=== PATIENT | male | born 1955 | race Caucasian/White ===

== ENCOUNTER 2018-12-25 13:57 | Inpatient (IN) | payer BC ==
[2018-12-25] MEDS ORDERED: NS 0.9% 1000 ML** 1,000 ML IV ONE (14:13)
--- NOTE | 2018-12-25 14:17 | ED ---
HPI Chest Pain - HPI Summary HPI Summary: Pt is a 63 y/o male brought in by EMS who presents to the ED c/o chest discomfort. He woke up at 2:00 this morning with some left anterior chest discomfort that radiated into his left shoulder. Pt has a left shoulder injury that is intermittently painful, so he initially thought it was because of this. The discomfort resolved, so the pt went to work. Today at work the discomfort returned, this time accompanied by fatigue, weakness, diaphoresis, and pallor. The discomfort is rated a 5/10 in severity. Upon EMS arrival pt was on the floor and extremely diaphoretic. Pt denies any sharp CP, abdominal pain, back pain, cough, congestion, SOB, N/V/D, numbness, or difficulty moving extremities. He was given 324 mg of ASA and 3 NTGs. His BP was initially about 180/100, and each NTG subsequently brought his BP down. Pt denies any HTN, DM, or cardiac disease. FHx cardiac disease. Pt is a smoker. STEMI called at 13:53, 3 minutes ETA. - History of Current Complaint Hx Obtained From: Patient, EMS Onset/Duration: Started Hours Ago - 2:00 this morning, Still Present Timing: Constant Current Severity: Moderate Pain Intensity: 5 Pain Scale Used: 0-10 Numeric Chest Pain Location: Left Anterior Chest Pain Radiates: Yes Chest Pain Radiates To:: Shoulder - left Character: Other: - Discomfort Aggravating Factor(s): Nothing Alleviating Factor(s): NTG 123, EMS Tx - ASA Associated Signs and Symptoms: Positive: Chest Pain - discomfort, Diaphoresis. Negative: Numbness, Shortness of Breath, Nausea, Cough, Back Pain, Abdominal Pain, Vomiting, Nasal Congestion - Allergy/Home Medications Allergies/Adverse Reactions: Allergies Allergy/AdvReac Type Severity Reaction Status Date / Time No Known Allergies Allergy Verified 12/25/18 14:12 PMH/Surg Hx/FS Hx/Imm Hx Endocrine/Hematology History: Denies: Hx Diabetes Cardiovascular History: Denies: Hx Coronary Artery Disease, Hx Hypertension Infectious Disease History: Unable to Obtain/Confirm Infectious Disease History: Denies: Traveled Outside the [place] in Last 30 Days - Family History Known Family History: Positive: Cardiac Disease - Social History Alcohol Use: Rare Hx Substance Use: No Substance Use Type: Reports: None Hx Tobacco Use: Yes Smoking Status (MU): Current Every Day Smoker Review of Systems Positive: Fatigue, Skin Diaphoresis, Other - generalized weakness Negative: Other - congestion Positive: Chest Pain - discomfort Negative: Shortness Of Breath, Cough Negative: Abdominal Pain, Vomiting, Diarrhea, Nausea Positive: Arthralgia - radiating to left shoulder. Negative: Myalgia - back Positive: Other - Pallor Negative: Weakness - of extremities, Numbness All Other Systems Reviewed And Are Negative: Yes Physical Exam - Summary Physical Exam Summary: Appearance: ill appearing, moderate-severe pain distress Skin: warm, reflects adequate perfusion, diaphoretic Head/face: normal Eyes: EOMI, ENEDELIA ENT: mucous membranes moist Neck: supple, non-tender Respiratory: crackles in right lung base, breath sounds present Cardiovascular: RRR, pulses weak but present everywhere, no LE edema Abdomen: non-tender, soft but gassy Bowel Sounds: present Musculoskeletal: normal, strength/ROM intact, complains of left shoulder pain Neuro: normal, sensory motor intact, A&Ox3 Triage Information Reviewed: Yes Vital Signs On Initial Exam: Initial Vitals Temp Pulse Resp BP Pulse Ox 97.2 F 66 18 132/88 98 12/25/18 14:08 12/25/18 14:08 12/25/18 14:08 12/25/18 14:08 12/25/18 14:08 Vital Signs Reviewed: Yes Diagnostics - Vital Signs Vital Signs Temp Pulse Resp BP Pulse Ox 12/25/18 14:08 97.2 F 66 18 132/88 98 - Laboratory Result Diagrams: 12/25/18 14:05 12/25/18 14:05 Lab Statement: Any lab studies that have been ordered have been reviewed, and results considered in the medical decision making process. - EKG 13:58 Cardiac Rate: NL - 68 bpm EKG Rhythm: Sinus Rhythm Summary of EKG Findings: Minimal ST elevation with J point elevation in leads V2 and V3 with ST depression leads III and AVF 14:03 Cardiac Rate: NL - 62 bpm EKG Rhythm: Sinus Rhythm Summary of EKG Findings: Slightly increased ST elevation with J point elevation in leads V2 and V3 with ST depression leads III and AVF 14:11 Cardiac Rate: NL - 62 bpm EKG Rhythm: Sinus Rhythm Summary of EKG Findings: ST elevation in leads V2-V3 with reciprocal ST depression Chest Pain Course/Dx - Course Course Of Treatment: Nurse's notes reviewed. Patient presents in extremis with concern for possible ST elevation TX. labor mediator team was activated despite not meeting criteria. Patient dropped his blood pressure and his ST elevations continued to evolve over 2 more EKGs, meeting criteria. Neck oh confirmed anterior wall movement abnormality. He was taken to the Motion Picture Director emergently for stenting. - Chest Pain Differential Diagnosis/HQI/PQRI: Acute TX, ACS, Angina, Aortic Aneurysm, CHF, Chest Wall, GI Disease, Lower Respiratory Infection - Diagnoses Provider Diagnoses: Acute ST elevation myocardial infarction (STEMI) During the Visit The Following Alert/Code Occurred: STEMI - Called at 13:53, ETA 3 minutes - Provider Notifications Discussed Care Of Patient With: Rich Nicholson Time Discussed With Above Provider: 13:56 Instructed by Provider To: Other - Dr. Nicholson arrived to the ED. At 14:16 Dr. Nicholson is admitting the pt and taking him to the label sewer. - Critical Care Time Critical Care Time: 30-74 min - Critical care time is exclusive of separately billable procedures Discharge - Sign-Out/Discharge Documenting (check all that apply): Patient Departure - Admit Patient Received Moderate/Deep Sedation with Procedure: No - Discharge Plan Condition: Stable Disposition: ADMITTED TO [facility] - Billing Disposition and Condition Condition: STABLE Disposition: Admitted to [facility] - Attestation Statements Document Initiated by Aziza: Yes Documenting Scribe: Lia Ornelas Provider For Whom Scribe is Documenting (Include Credential): Gabe Chatman MD Scribe Attestation: Lia Johnson, scribed for Gabe Chatman MD on 12/25/18 at 1814. Scribe Documentation Reviewed: Yes Provider Attestation: The documentation as recorded by the Lia bunn accurately reflects the service I personally performed and the decisions made by me, Gabe Chatman MD Status of Scribe Document: Viewed
[2018-12-25 14:19] LABS: Hematocrit 46 % (42-52); Hemoglobin 15.6 g/dl (14.0-18.0); Mean Corpuscular HGB Conc 34 g/dl (31-36); Mean Corpuscular Hemoglobin 28 pg (27-31); Mean Corpuscular Volume 83 fL (80-94); Mean Platelet Volume 7.5 fL (7.4-10.4); Platelet Count 332 10^3/ul (150-450); Red Blood Count 5.56 10^6/ul (4.00-5.40); Red Cell Distribution Width 14 % (10.5-15); White Blood Count 7.2 10^3/ul (3.5-10.8)
[2018-12-25] MEDS ORDERED: Heparin for STEMI(*) 5,000 UNITS/ML 1 ML VIAL IV ONE ×2 (14:19→14:20)
[2018-12-25] MEDS ORDERED: Lidocaine 1% INJ* 10 MG/ML 30 ML SDV ONE (14:22)
[2018-12-25] MEDS ORDERED: Heparin(*) 1000 UNIT/ML 10 ML VIAL CATH LAB IV ONE (14:22)
[2018-12-25] MEDS ORDERED: Heparin 2 UNITS/ML IVPREMIX* 2,000 ML IV ONE (14:22)
[2018-12-25] MEDS ORDERED: VERAPAMIL 2.5 MG/ML 2 ML VIAL ** 5 mg/2 ml ONE ×2 (14:22→14:30)
[2018-12-25] MEDS ORDERED: nitroGLYCERIN DRIP* 25,000 MCG/250 ML BTL ONE ×2 (14:22→14:35)
[2018-12-25] MEDS ORDERED: fentaNYL* 50 MCG/ML 2 ML VIAL (100 MCG VIAL) ONE ×2 (14:23→14:50)
[2018-12-25] MEDS ORDERED: Midazolam* 1 MG/ML 10 ML VIAL (10 MG) ONE (14:23)
[2018-12-25] MEDS ORDERED: Iohexol 350 (CONTRAST) 200 ML MDV IV ONE ×2 (14:24→15:18)
[2018-12-25 14:36] LABS: Albumin 4.3 g/dL (3.2-5.2); Albumin/Globulin Ratio 1.5 (1-3); BUN/Creatinine Ratio 10.2 (8-20); Calcium 9.2 mg/dL (8.6-10.3); EGFR African American 105.2 (>60); EGFR Non-African American 86.9 (>60); Globulin 2.9 g/dL (2-4); Potassium 3.5 mmol/L (3.5-5.0); Total Bilirubin 0.5 mg/dL (0.2-1.0); Total Protein 7.2 g/dL (6.4-8.9)
[2018-12-25 14:40] LABS: Myoglobin 49.3 ng/mL (17.4-105.7)
[2018-12-25 14:41] LABS: CKMB ng/mL 2.2 ng/mL (0.6-6.3)
[2018-12-25] MEDS ORDERED: KCL 10 MEQ/50 ML IVPREMIX* 10 MEQ/50 ML BAG ONE (14:43)
[2018-12-25 14:44] LABS: Troponin I 0.05 ng/mL (<0.04)
[2018-12-25] MEDS ORDERED: Ticagrelor* 90 MG TAB PO ONE (14:46)
[2018-12-25 14:58] LABS: Influenza A Molecular NEGATIVE (Negative); Influenza B Molecular NEGATIVE (Negative)
[2018-12-25] MEDS ORDERED: Eptifibatide (*) 0 ML ONE (15:02)
[2018-12-25] MEDS ORDERED: Eptifibatide IV (Load dose)(*) 2 MG/ML 10 ml VIAL ONE (15:02)
[2018-12-25 15:09] LABS: Activated Partial Thrombo Time 34.7 seconds (26.0-36.3); INR 0.98 (0.77-1.02)
[2018-12-25] MEDS ORDERED: Ondansetron INJ* 2 MG/ML VIAL ONE (15:10)
[2018-12-25 15:14] LABS: TSH (Thyroid Stimulating Horm) 0.74 mcIU/mL (0.34-5.60)
[2018-12-25] MEDS ORDERED: Ondansetron INJ* 2 MG/ML VIAL IV PRN (16:03)
[2018-12-25] MEDS ORDERED: Zolpidem TAB* 5 MG PO PRN (16:03)
[2018-12-25] MEDS ORDERED: Nitroglycerin TAB 0.4 MG* 0.4 MG TAB SL PRN (16:03)
[2018-12-25] MEDS ORDERED: NS 0.9% 1000 ML** 400 ML IV SCH (16:15)
[2018-12-25 16:23] LABS: HDL Cholesterol 24.8 mg/dL
--- NOTE | 2018-12-25 16:32 | ECHO ---
Patient: RAFAELA REDDY [facility] Rec#: [id number] : 1955 Date: 12/25/2018 Age: 63y Height: 173 cm / 68.1 in Weight: 66 kg / 145.5 lbs Sex: M BSA: 1.79 Room#: [id number] Admit Date#: 12/25/2018 Type: Inpatient Referring: Rich Nicholson MD Reading: Radha Manjarrez MD Assistant Portfolio Manager: Wendy Smith RDCS CC: Emiliano Azar MD Transthoracic Echocardiogram Indication: Myocardial Infarction BP: 1.38/94 HR: 62 Rhythm: NSR Findings History: Smoker. This is a LIMITED study to evaluate left ventricular function. Technical Comments: The study quality is good. Completed at 1530. Left Ventricle: The left ventricular chamber size is normal. There is a focal wall motion abnormality present.Large anterior wall motion abnormality. There is moderate to severely decreased left ventricular systolic function. The estimated ejection fraction is 35-40%. Right Ventricle: The right ventricular global systolic function is mildly reduced. Pericardium: There is no significant pericardial effusion. A pericardial fat pad is visualized. Conclusions Limited echo to evaluate wall motion. Large apical anterior area of severe hypokinesis extending to the septum and anterior wall. The estimated ejection fraction is 35-40%. No prior echo to compare.
[2018-12-25] MEDS: Atorvastatin* 80 MG TAB PO SCH (16:43)
[2018-12-25] MEDS: Metoprolol Tartrate TAB* 25 MG PO SCH ×2 (16:43→23:18)
[2018-12-25] MEDS ORDERED: nitroGLYCERIN DRIP* 25,000 MCG/250 ML BTL IV SCH (17:00)
[2018-12-25 17:06] LABS: CKMB ng/mL 55.3 ng/mL (0.6-6.3)
[2018-12-25 17:09] LABS: Troponin I 3.6 ng/mL (<0.04)
--- NOTE | 2018-12-25 18:12 | HP ---
HISTORY AND PHYSICAL: DATE OF ADMISSION: 12/25/18 PRIMARY CARE PHYSICIAN: None. HISTORY OF PRESENT ILLNESS: A 63-year-old male presenting to the ER with somewhat atypical left shoulder pain and weakness, subsequently diagnosed with anterior ST- elevation infract. He has no previous cardiac history. Last night, he had about a 15-minute episode of aching in his left shoulder, which he attributed to having laid a floor the day before. He went back to sleep after taking some ibuprofen. This morning, he had recurrence of the same left shoulder pain that waxed and waned, accompanied by weakness and no shortness of breath, palpitations, or syncope. He presented in the ER, where EKG initially showed minimal precordial J-point elevation with an early repolarization pattern; because of the somewhat vague symptom complex, an echo was obtained stat which revealed an anteroapical wall motion abnormality consistent with an infarct; serial EKGs did then document ST- elevation anterior infarct; and he was brought to the labor delivery specialist emergently. PAST MEDICAL HISTORY: Noncontributory. PRE-HOSPITAL MEDICATIONS: None. ALLERGIES: None to medications. SOCIAL HISTORY: He is a smoker. He is . REVIEW OF SYSTEMS: General: No weight loss. No fevers. 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 GI: No history of peptic ulcer disease or bleeding. Heme: No history of malignancy or anemia. Circulatory: Negative. Endocrine: No history of diabetes. Remainder all negative. PHYSICAL EXAMINATION VITAL SIGNS: First ER BP 93/73, dropping to 80/58, he did receive 3 nitroglycerin in the ambulance. Subsequent BP normalized at 111/83 with volume. Heart rate in the 60 to 70s with occasional PVCs. HEENT: Unremarkable without xanthelasma, scleral injection, or jaundice. EOMs normal. NECK: JVP was normal. Carotids were normal without bruits. No thyromegaly. LUNGS: Clear to percussion and auscultation. CARDIAC: [place] not palpable, normal S1, S2. No gallop, murmur, or rub. ABDOMEN: Soft, nontender. No bruit. Liver edge not palpable. EXTREMITIES: Radial pulses 2+. Femoral pulses 2+. Pedals 2+. He has no cyanosis, clubbing, or edema. NEUROLOGIC: Cranial nerves grossly intact. PSYCH: Appropriately uncomfortable and anxious. SKIN: Warm and perfused. DIAGNOSTIC STUDIES/LAB DATA: EKG as above. CBC unremarkable. BMP with low potassium of 3.5, random blood sugar elevated at 143, alkaline phosphatase increased at 136. First CPK is normal at 117 with MB of 2.2, first troponin 0.05. BNP normal at 16. Total cholesterol 182; triglycerides high at 233; LDL 111, direct measured 120; HDL low at 24.8. TSH normal. IMPRESSION: 1. Anterior wall ST-elevation infarct. He underwent emergent catheterization and revascularization. 2. Tobacco use. We will encourage him not to resume smoking. 3. Hyperglycemia, I will check a hemoglobin A1c. 4. Abnormal alkaline phosphatase, presently unknown etiology. [id number]/[facility] #: [id number] JAMES
[2018-12-25] MEDS ORDERED: Captopril TAB* 12.5 MG PO SCH (21:00)
[2018-12-25] MEDS: Acetaminophen TAB* 325 MG PO PRN (21:00)
[2018-12-25] MEDS: Ticagrelor* 90 MG TAB PO SCH (21:01)
[2018-12-25] MEDS: Nicotine PATCH 7 MG/24 HR* PATCH TRANSDERM SCH (21:02)
[2018-12-25] MEDS: Nicotine Patch Removal NOTE PATCH OFF SCH (21:02)
[2018-12-25 22:05] LABS: CKMB ng/mL 168.5 ng/mL (0.6-6.3)
[2018-12-25 22:11] LABS: Troponin I 34.12 ng/mL (<0.04)
[2018-12-26] MEDS: Metoprolol Tartrate TAB* 25 MG PO SCH ×5 (05:54→23:38)
[2018-12-26 06:37] LABS: BUN/Creatinine Ratio 10.3 (8-20); Calcium 8.9 mg/dL (8.6-10.3); EGFR African American 106.6 (>60); EGFR Non-African American 88.1 (>60); Potassium 4.3 mmol/L (3.5-5.0)
[2018-12-26 06:40] LABS: CKMB ng/mL 110.7 ng/mL (0.6-6.3); Troponin I 25.91 ng/mL (<0.04)
--- NOTE | 2018-12-26 08:44 | PN ---
Subjective Date of Service: 12/26/18 - anterior stemi s/p SYLVIA 12/25/2018 Interval History: No events last night, patient states he did not sleep well due to generalized aches and pains. No recurrent left shoulder pain radiating into upper back or dizziness since yesterday afternoon. No c/o chest pain, dizziness, palpitations. No events on telemetry. Reports ambulating to chair and using bathroom in room. Medications Active Medications: Acetaminophen (Tylenol Tab*) 650 mg PO Q4H PRN PRN Reason: HEADACHE/PAIN Last Admin: 12/25/18 21:00 Dose: 650 mg Aspirin (Aspirin 81 Mg Chew Tab*) 81 mg PO DAILY [facility] Atorvastatin Calcium (Lipitor*) 80 mg PO 1700 [facility] Last Admin: 12/25/18 16:43 Dose: 80 mg Nitroglycerin/Dextrose (Nitroglycerin Drip*) 25,000 mcg in 250 mls @ 7.2 mls/ hr IV .(Initial Rate) [facility]; Protocol Influenza Virus Vaccine (Fluarix *Quad* *) 0.5 ml IM .ONCE ONE Stop: 12/26/18 09:01 Metoprolol Tartrate (Lopressor Tab*) 25 mg PO Q6H [facility] Last Admin: 12/26/18 05:54 Dose: 25 mg Nicotine (Nicotine Patch 7 Mg/24 Hr*) 1 patch TRANSDERM DAILY [facility] Last Admin: 12/25/18 21:02 Dose: Not Given Nitroglycerin (Nitroglycerin Tab 0.4 Mg*) 0.4 mg SL Q5M PRN PRN Reason: ANGINA Ondansetron HCl (Zofran Inj*) 4 mg IV Q4H PRN PRN Reason: NAUSEA Pharmacy Profile Note (Nicotine Patch Removal Note*) 1 note PATCH OFF 2100 [facility] Last Admin: 12/25/18 21:02 Dose: 1 note Pneumococcal Polyvalent Vaccine (Pneumococcal Vac 23-Polyvalent*) 0.5 ml IM .ONCE ONE Stop: 12/26/18 09:01 Ticagrelor (Brilinta*) 90 mg PO BID [facility] Last Admin: 12/25/18 21:01 Dose: 90 mg Zolpidem Tartrate (Ambien Tab*) 5 mg PO BEDTIME PRN PRN Reason: INSOMNIA Last Admin: 12/25/18 21:00 Dose: 5 mg Objective Vital Signs: Temp Pulse Resp BP Pulse Ox 97.8 F 53 20 139/91 93 12/26/18 03:24 12/26/18 07:00 12/26/18 07:00 12/26/18 07:00 12/26/18 07:00 Oxygen Devices in Use Now: None Appearance: A+O X3 NAD, cooperative with exam. Ears/Nose/Mouth/Throat: NL Teeth, Lips, Gums, Clear Oropharnyx, Mucous Membranes Moist Neck: NL Appearance and Movements; NL JVP, Trachea Midline, No Thyroid Enlargement, Masses Respiratory: Symmetrical Chest Expansion and Respiratory Effort, Clear to Auscultation Cardiovascular: NL Sounds; No Murmurs; No JVD, No Edema Abdominal: NL Sounds; No Tenderness; No Distention Extremities: No Edema Skin: No Rash or Ulcers Neurological: Alert and Oriented x 3 Lines/Tubes/Other Access: Clean, Dry and Intact Peripheral IV Laboratory Results: 12/25/18 14:05 12/26/18 06:00 INR (Anticoag Therapy) 0.98 (0.77-1.02) 12/25/18 14:05 APTT 34.7 seconds (26.0-36.3) 12/25/18 14:05 Total Bilirubin 0.50 mg/dL (0.2-1.0) 12/25/18 14:05 AST 20 U/L (13-39) 12/25/18 14:05 ALT 14 U/L (7-52) 12/25/18 14:05 Alkaline Phosphatase 136 U/L (34-104) H 12/25/18 14:05 CK-MB (CK-2) 110.7 ng/mL (0.6-6.3) H 12/26/18 06:00 B-Natriuretic Peptide 16 pg/mL (<=100) 12/25/18 14:05 Total Protein 7.2 g/dL (6.4-8.9) 12/25/18 14:05 Albumin 4.3 g/dL (3.2-5.2) 12/25/18 14:05 Globulin 2.9 g/dL (2-4) 12/25/18 14:05 Albumin/Globulin Ratio 1.5 (1-3) 12/25/18 14:05 Triglycerides 233 mg/dL 12/25/18 14:05 Cholesterol 182 mg/dL 12/25/18 14:05 LDL Cholesterol 111 mg/dL 12/25/18 14:05 HDL Cholesterol 24.8 mg/dL 12/25/18 14:05 TSH 0.74 mcIU/mL (0.34-5.60) 12/25/18 14:05 12/25/18 12/25/18 12/25/18 14:05 16:30 21:24 Troponin I 0.05 H* 3.60 H* 34.12 H* 12/26/18 06:00 Troponin I 25.91 H* Laboratory Results - last 24 hr 12/25/18 12/25/18 12/25/18 14:05 14:05 14:05 WBC 7.2 RBC 5.56 H Hgb 15.6 Hct 46 MCV 83 MCH 28 MCHC 34 RDW 14 Plt Count 332 MPV 7.5 INR (Anticoag Therapy) 0.98 APTT 34.7 POC Activ Clotting Time D-Dimer, Quantitative < 200 Sodium 136 Potassium 3.5 Chloride 104 Carbon Dioxide 22 Anion Gap 10 BUN 9 Creatinine 0.88 Est GFR ( Amer) 105.2 Est GFR (Non-Af Amer) 86.9 BUN/Creatinine Ratio 10.2 Glucose 143 H Calcium 9.2 Total Bilirubin 0.50 AST 20 ALT 14 Alkaline Phosphatase 136 H Total Creatine Kinase 117 CK-MB (CK-2) 2.2 Myoglobin 49.3 Troponin I 0.05 H* B-Natriuretic Peptide Total Protein 7.2 Albumin 4.3 Globulin 2.9 Albumin/Globulin Ratio 1.5 Triglycerides 233 Cholesterol 182 LDL Cholesterol 111 LDL Cholesterol Direct 120 HDL Cholesterol 24.8 TSH 0.74 Influenza A (Rapid) Influenza B (Rapid) Blood Type Antibody Screen 12/25/18 12/25/18 12/25/18 14:05 14:05 14:46 WBC RBC Hgb Hct MCV MCH MCHC RDW Plt Count MPV INR (Anticoag Therapy) APTT POC Activ Clotting Time D-Dimer, Quantitative Sodium Potassium Chloride Carbon Dioxide Anion Gap BUN Creatinine Est GFR ( Amer) Est GFR (Non-Af Amer) BUN/Creatinine Ratio Glucose Calcium Total Bilirubin AST ALT Alkaline Phosphatase Total Creatine Kinase CK-MB (CK-2) Myoglobin Troponin I B-Natriuretic Peptide 16 Total Protein Albumin Globulin Albumin/Globulin Ratio Triglycerides Cholesterol LDL Cholesterol LDL Cholesterol Direct HDL Cholesterol TSH Influenza A (Rapid) Negative Influenza B (Rapid) Negative Blood Type O Positive Antibody Screen Negative 12/25/18 12/25/18 12/25/18 14:46 15:05 16:30 WBC RBC Hgb Hct MCV MCH MCHC RDW Plt Count MPV INR (Anticoag Therapy) APTT POC Activ Clotting Time 225 351 D-Dimer, Quantitative Sodium Potassium Chloride Carbon Dioxide Anion Gap BUN Creatinine Est GFR ( Amer) Est GFR (Non-Af Amer) BUN/Creatinine Ratio Glucose Calcium Total Bilirubin AST ALT Alkaline Phosphatase Total Creatine Kinase 609 H CK-MB (CK-2) 55.3 H Myoglobin Troponin I 3.60 H* B-Natriuretic Peptide Total Protein Albumin Globulin Albumin/Globulin Ratio Triglycerides Cholesterol LDL Cholesterol LDL Cholesterol Direct HDL Cholesterol TSH Influenza A (Rapid) Influenza B (Rapid) Blood Type Antibody Screen 12/25/18 12/25/18 12/26/18 21:24 23:37 06:00 WBC RBC Hgb Hct MCV MCH MCHC RDW Plt Count MPV INR (Anticoag Therapy) APTT POC Activ Clotting Time D-Dimer, Quantitative Sodium 134 L Potassium 4.2 4.3 Chloride 106 Carbon Dioxide 22 Anion Gap 6 BUN 9 Creatinine 0.87 Est GFR ( Amer) 106.6 Est GFR (Non-Af Amer) 88.1 BUN/Creatinine Ratio 10.3 Glucose 120 H Calcium 8.9 Total Bilirubin AST ALT Alkaline Phosphatase Total Creatine Kinase 1407 H 1056 H CK-MB (CK-2) 168.5 H 110.7 H Myoglobin Troponin I 34.12 H* 25.91 H* B-Natriuretic Peptide Total Protein Albumin Globulin Albumin/Globulin Ratio Triglycerides Cholesterol LDL Cholesterol LDL Cholesterol Direct HDL Cholesterol TSH Influenza A (Rapid) Influenza B (Rapid) Blood Type Antibody Screen Diagnostic Imaging: Echo 12/25/2018; LVEF 35-40% + anterior focal WMA EKG Data: 12/26/2018 NSR rate 59 new anterior TW depression consistent with recent infarct. Telemetry NSR rate 50-60's. no VPC or VT Assessment/Plan #1 Anterior STEMI 12/25/2018; s/p SYLVIA to LAD. No recurrent c/o dizziness, left shoulder pain radiating into upper back or fatigue since intervention. He is on ASA 81/day, Brilinta 90mg PO BID, Lopressor 25mg PO Q6H and Lipitor 80QHS. Troponin peaked 12/25/2018 at 34. LVEF 35-40%. #2 ICM; LVEF 35-40% on 12/25/2018 echo. Appears compensated on exam. Will increase Captopril to 12.5mg PO TID, continue Lopressor 25mg PO Q6H. Will convert Lopressor to Toprol 50/day starting 12/27/2018. Will consider aldactone in the future. #3 H/o Tobacco Abuse; Continue Nicotine patch. I reviewed the importance of smoking cessation for overall cardiovascular benefits. He is interested in quitting. Will need Nicotine patch prescribed prior to discharge. h/o smoking 1/ 2-3/4 PPD for 30+ years #4 HLD; LDL 120. Goal LDL given now new h/o CAD is <70. Continue Lipitor 80mg PO QHS. will need repeat FLP and LFTs in 6-8 weeks given statin initiation. #5 Elevated blood glucose on chemistry. Await HgbA1C. #6 Disposition pending course, patient is a full code. If he does well with ambulating halls today will likely transfer to telemetry. Will not RX heparin for DVT prophylaxis due to early and frequent ambulation. Attending: Rich Nicholson
[2018-12-26] MEDS: Nicotine PATCH 7 MG/24 HR* PATCH TRANSDERM SCH (08:56)
[2018-12-26] MEDS: Aspirin 81 mg CHEW TAB* 81 MG TAB.CHEW PO SCH (08:56)
[2018-12-26] MEDS: Captopril TAB* 12.5 MG PO SCH ×3 (08:56→21:29)
[2018-12-26] MEDS: Ticagrelor* 90 MG TAB PO SCH ×2 (08:56→21:28)
[2018-12-26] MEDS ORDERED: Pneumococcal *Vac Polyvalent 0.5 ML VIAL IM ONE (09:00)
--- NOTE | 2018-12-26 14:19 | CATH ---
CC: Dr. Rich Nicholson STENT REPORT: DATE OF PROCEDURE: 12/25/18 PRIMARY CARE PHYSICIAN: None. PROCEDURES: Right radial artery access, bilateral selective coronary cineangiography, aspiration thr ombectomy LAD, Pronto. Stent placement LAD 2.75 x 24 Synergy drug-eluting stent, with proximal 3.0 x 15 Xience Leana drug-eluting stent. DIAGNOSTIC CATHETERS: 5F TIG4, 5F pigtail. GUIDING CATHETER: 6F VL 3.5. MEDICATIONS: 1. Subcu lidocaine. 2. IV Versed. 3. IV fentanyl. 4. Radial cocktail: 300 mcg nitroglycerin, verapamil 3 mg, heparin no units. He received 4000 unit s in the IV. An additional heparin 7000 units IV. 5. Zofran 4 mg for nausea. HEMODYNAMICS: Initial BP 145/101. Post revascularization, LV 124/16-21, no aortic valve gradients o n pullback. STENT DEPLOYMENT LAD: After Pronto aspiration thrombectomy established antegrade flow, 2.75 x 24 Syn ergy drug-eluting stent deployed 11 atmospheres 14 seconds, post dilated with overlapping 2.75 x 20 N C balloon dilatations to 16 atmospheres distally, and 18 atmospheres at the proximal end. The proxim al LAD stenosis was then deployed using a 3.0 x 15 Xience Leana stent deployed at 12 atmospheres 15 seconds, and post dilated with a 3 x 15 NC balloon to 20 atmospheres for 40 seconds. ANGIOGRAPHY: Left main. The left main is relatively short, has no stenosis. LAD. The LAD is moderate to large, is occluded a few millimeters from the origin, there is faint lef t-to-left collateral filling of a small diagonal branch. Circumflex. The circumflex is large, not dominant, supplies a very large first marginal, small-to-mo derate posterolateral and ends with a moderate posterolateral, the circumflex has no significant sten osis. RCA. The RCA is moderate, dominant, with scattered luminal irregularity proximally as well as within the PDA. The PDA is moderate, has a mid 30% to 40% stenosis. After anabaptism of antegrade flow, there is a moderate proximal stenosis followed by reconstitution followed by a tandem stenosis after the first septal. After stent deployment and high pressure post dilatation, flow is ARIANNA 3, there is no residual stenosis. There is a jailed small first diagonal, which has a tubular proximal 80% stenosis, has a reference diameter less than a millimeter. Myocardi al blush is present. Chest pain resolved. LV gram. There is preserved inferior and proximal anterolateral contractility, the mid to distal ant erolateral wall as well as apex are hypokinetic, visually estimated LVEF 40%. CONCLUSION: 1. Single-vessel disease LAD with acute anterior wall infarct presentation. Successful revasculariza tion with 2 drug-eluting stents. 2. Aspiration thrombectomy with removal of a small thrombus. 3. LV systolic dysfunction with moderately reduced LVEF. 4. Elevated LVEDP, otherwise normal left-sided hemodynamics. 5. Successful right radial artery access. [id number]/[facility] #: [id number]
[2018-12-26] MEDS: Atorvastatin* 80 MG TAB PO SCH (17:31)
[2018-12-26] MEDS: Nicotine Patch Removal NOTE PATCH OFF SCH (21:30)
[2018-12-27] MEDS: Metoprolol Tartrate TAB* 25 MG PO SCH (05:53)
[2018-12-27 07:22] LABS: BUN/Creatinine Ratio 10.6 (8-20); Calcium 9.1 mg/dL (8.6-10.3); EGFR African American 109.5 (>60); EGFR Non-African American 90.5 (>60); Potassium 4.2 mmol/L (3.5-5.0)
--- NOTE | 2018-12-27 08:27 | PN ---
<Elodia Irvin - Last Filed: 12/27/18 08:20> Subjective Date of Service: 12/27/18 - s/p anterior STEMI Interval History: No events last night, Patient was transferred to . he denies dizziness, chest pain, SOB, RIDLEY, palpitations. He adds he felt like he had heart burn but that seemed to improve. Per MELISSA Lopez last night while patient was asleep he was bradycardic rate 50. Medications Active Medications: Acetaminophen (Tylenol Tab*) 650 mg PO Q4H PRN PRN Reason: HEADACHE/PAIN Last Admin: 12/25/18 21:00 Dose: 650 mg Aspirin (Aspirin 81 Mg Chew Tab*) 81 mg PO DAILY [facility] Last Admin: 12/26/18 08:56 Dose: 81 mg Atorvastatin Calcium (Lipitor*) 80 mg PO 1700 [facility] Last Admin: 12/26/18 17:31 Dose: 80 mg Influenza Virus Vaccine (Fluarix *Quad* *) 0.5 ml IM .ONCE ONE Stop: 12/27/18 09:01 Lisinopril (Prinivil Tab*) 5 mg PO DAILY [facility] Metoprolol Succinate (Toprol Xl Tab*) 50 mg PO DAILY [facility] Nicotine (Nicotine Patch 7 Mg/24 Hr*) 1 patch TRANSDERM DAILY [facility] Last Admin: 12/26/18 08:56 Dose: 1 patch Nitroglycerin (Nitroglycerin Tab 0.4 Mg*) 0.4 mg SL Q5M PRN PRN Reason: ANGINA Pharmacy Profile Note (Nicotine Patch Removal Note*) 1 note PATCH OFF 2100 [facility] Last Admin: 12/26/18 21:30 Dose: 1 note Pneumococcal Polyvalent Vaccine (Pneumococcal Vac 23-Polyvalent*) 0.5 ml IM .ONCE ONE Stop: 12/27/18 09:01 Ticagrelor (Brilinta*) 90 mg PO BID [facility] Last Admin: 12/26/18 21:28 Dose: 90 mg Zolpidem Tartrate (Ambien Tab*) 5 mg PO BEDTIME PRN PRN Reason: INSOMNIA Last Admin: 12/25/18 21:00 Dose: 5 mg Objective Vital Signs: Temp Pulse Resp BP Pulse Ox 98.3 F 58 20 130/78 99 12/27/18 08:17 12/27/18 08:17 12/27/18 08:17 12/27/18 08:17 12/27/18 08:17 Oxygen Devices in Use Now: None Appearance: A+O X3 NAD, cooperative with exam. Ears/Nose/Mouth/Throat: NL Teeth, Lips, Gums, Clear Oropharnyx, Mucous Membranes Moist Neck: NL Appearance and Movements; NL JVP, Trachea Midline, No Thyroid Enlargement, Masses Respiratory: Symmetrical Chest Expansion and Respiratory Effort, Clear to Auscultation Cardiovascular: NL Sounds; No Murmurs; No JVD, No Edema Abdominal: NL Sounds; No Tenderness; No Distention Extremities: No Edema Skin: No Rash or Ulcers Neurological: Alert and Oriented x 3 Lines/Tubes/Other Access: Clean, Dry and Intact Peripheral IV Laboratory Results: 12/25/18 14:05 12/27/18 06:47 INR (Anticoag Therapy) 0.98 (0.77-1.02) 12/25/18 14:05 APTT 34.7 seconds (26.0-36.3) 12/25/18 14:05 Total Bilirubin 0.50 mg/dL (0.2-1.0) 12/25/18 14:05 AST 20 U/L (13-39) 12/25/18 14:05 ALT 14 U/L (7-52) 12/25/18 14:05 Alkaline Phosphatase 105 U/L (34-104) H 12/26/18 06:00 CK-MB (CK-2) 110.7 ng/mL (0.6-6.3) H 12/26/18 06:00 B-Natriuretic Peptide 16 pg/mL (<=100) 12/25/18 14:05 Total Protein 7.2 g/dL (6.4-8.9) 12/25/18 14:05 Albumin 4.3 g/dL (3.2-5.2) 12/25/18 14:05 Globulin 2.9 g/dL (2-4) 12/25/18 14:05 Albumin/Globulin Ratio 1.5 (1-3) 12/25/18 14:05 Triglycerides 233 mg/dL 12/25/18 14:05 Cholesterol 182 mg/dL 12/25/18 14:05 LDL Cholesterol 111 mg/dL 12/25/18 14:05 HDL Cholesterol 24.8 mg/dL 12/25/18 14:05 TSH 0.74 mcIU/mL (0.34-5.60) 12/25/18 14:05 12/25/18 12/25/18 12/25/18 14:05 16:30 21:24 Troponin I 0.05 H* 3.60 H* 34.12 H* 12/26/18 06:00 Troponin I 25.91 H* Laboratory Results - last 24 hr 12/26/18 12/26/18 12/27/18 06:00 06:00 06:47 Sodium 134 L 135 Potassium 4.3 4.2 Chloride 106 105 Carbon Dioxide 22 23 Anion Gap 6 7 BUN 9 9 Creatinine 0.87 0.85 Est GFR ( Amer) 106.6 109.5 Est GFR (Non-Af Amer) 88.1 90.5 BUN/Creatinine Ratio 10.3 10.6 Glucose 120 H 121 H Hemoglobin A1c 5.8 H Calcium 8.9 9.1 GGT 41 Alkaline Phosphatase 105 H Total Creatine Kinase 1056 H CK-MB (CK-2) 110.7 H Troponin I 25.91 H* Diagnostic Imaging: Echo 12/25/2018; LVEF 35-40% + anterior focal WMA EKG Data: 12/26/2018 NSR rate 59 new anterior TW depression consistent with recent infarct. Telemetry NSR rate 50's( while asleep)-60's. no VPC or VT Assessment/Plan #1 Anterior STEMI 12/25/2018; s/p aspiration thrombectomy with removal of small thrombus and DESx2 to LAD. No recurrent c/o dizziness, left shoulder pain radiating into upper back or fatigue since intervention. He is on ASA 81/day, Brilinta 90mg PO BID, Lopressor 25mg PO Q6H and Lipitor 80QHS. Troponin peaked at 34. LVEF 35-40%. will convert Lopressor to Toprol 50mg PO daily.He will need uninterrupted DAPT x12 months given presentation was STEMI. After 12 months will evaluate individual risk assessment for continuing DAPT beyond 12 months. #2 ICM; LVEF 35-40% on 12/25/2018 echo. Appears compensated on exam. Will change Captopril to Lisinopril, change Lopressor 25mg PO Q6H to Toprol 50mg PO daily. #3 H/o Tobacco Abuse; Continue Nicotine patch. I reviewed the importance of smoking cessation for overall cardiovascular benefits. He is interested in quitting. Will need Nicotine patch prescribed prior to discharge. h/o smoking 1/ 2-3/4 PPD for 30+ years #4 HLD; LDL 120. Goal LDL given now new h/o CAD is <70. Continue Lipitor 80mg PO QHS. will need repeat FLP and LFTs in 6-8 weeks given statin initiation. #5 Elevated blood glucose on chemistry. Await HgbA1C. #6 Disposition pending course, patient is a full code. Will not RX heparin for DVT prophylaxis due to early and frequent ambulation. Attending: Rich Nicholson <Rich Nicholson - Last Filed: 12/27/18 11:09> Medications Active Medications: Acetaminophen (Tylenol Tab*) 650 mg PO Q4H PRN PRN Reason: HEADACHE/PAIN Last Admin: 12/25/18 21:00 Dose: 650 mg Aspirin (Aspirin 81 Mg Chew Tab*) 81 mg PO DAILY [facility] Last Admin: 12/27/18 08:35 Dose: 81 mg Atorvastatin Calcium (Lipitor*) 80 mg PO 1700 [facility] Last Admin: 12/26/18 17:31 Dose: 80 mg Lisinopril (Prinivil Tab*) 5 mg PO DAILY [facility] Last Admin: 12/27/18 08:35 Dose: 5 mg Metoprolol Succinate (Toprol Xl Tab*) 50 mg PO DAILY [facility] Last Admin: 12/27/18 08:35 Dose: 50 mg Nicotine (Nicotine Patch 7 Mg/24 Hr*) 1 patch TRANSDERM DAILY [facility] Last Admin: 12/27/18 08:34 Dose: 1 patch Nitroglycerin (Nitroglycerin Tab 0.4 Mg*) 0.4 mg SL Q5M PRN PRN Reason: ANGINA Pharmacy Profile Note (Nicotine Patch Removal Note*) 1 note PATCH OFF 2100 [facility] Last Admin: 12/26/18 21:30 Dose: 1 note Ticagrelor (Brilinta*) 90 mg PO BID [facility] Last Admin: 12/27/18 08:35 Dose: 90 mg Zolpidem Tartrate (Ambien Tab*) 5 mg PO BEDTIME PRN PRN Reason: INSOMNIA Last Admin: 12/25/18 21:00 Dose: 5 mg Objective Vital Signs: Temp Pulse Resp BP Pulse Ox 98.3 F 58 20 130/78 99 12/27/18 08:17 12/27/18 08:17 12/27/18 08:17 12/27/18 08:17 12/27/18 08:17 Laboratory Results: 12/25/18 14:05 12/27/18 06:47 INR (Anticoag Therapy) 0.98 (0.77-1.02) 12/25/18 14:05 APTT 34.7 seconds (26.0-36.3) 12/25/18 14:05 Total Bilirubin 0.50 mg/dL (0.2-1.0) 12/25/18 14:05 AST 20 U/L (13-39) 12/25/18 14:05 ALT 14 U/L (7-52) 12/25/18 14:05 Alkaline Phosphatase 105 U/L (34-104) H 12/26/18 06:00 CK-MB (CK-2) 110.7 ng/mL (0.6-6.3) H 12/26/18 06:00 B-Natriuretic Peptide 16 pg/mL (<=100) 12/25/18 14:05 Total Protein 7.2 g/dL (6.4-8.9) 12/25/18 14:05 Albumin 4.3 g/dL (3.2-5.2) 12/25/18 14:05 Globulin 2.9 g/dL (2-4) 12/25/18 14:05 Albumin/Globulin Ratio 1.5 (1-3) 12/25/18 14:05 Triglycerides 233 mg/dL 12/25/18 14:05 Cholesterol 182 mg/dL 12/25/18 14:05 LDL Cholesterol 111 mg/dL 12/25/18 14:05 HDL Cholesterol 24.8 mg/dL 12/25/18 14:05 TSH 0.74 mcIU/mL (0.34-5.60) 12/25/18 14:05 12/25/18 12/25/18 12/25/18 14:05 16:30 21:24 Troponin I 0.05 H* 3.60 H* 34.12 H* 12/26/18 06:00 Troponin I 25.91 H* Assessment/Plan Agree.Tentative DC tomorrow
[2018-12-27] MEDS: Nicotine PATCH 7 MG/24 HR* PATCH TRANSDERM SCH (08:34)
[2018-12-27] MEDS: Aspirin 81 mg CHEW TAB* 81 MG TAB.CHEW PO SCH (08:35)
[2018-12-27] MEDS: Metoprolol Succinate XL TAB* 50 MG PO SCH (08:35)
[2018-12-27] MEDS: Ticagrelor* 90 MG TAB PO SCH ×2 (08:35→20:17)
[2018-12-27] MEDS ORDERED: Pneumococcal *Vac Polyvalent 0.5 ML VIAL IM ONE (09:00)
[2018-12-27] MEDS ORDERED: Lisinopril TAB* 5 MG PO SCH (09:00)
[2018-12-27] MEDS ORDERED: Lisinopril TAB* 5 MG PO ONE (11:45)
[2018-12-27] MEDS: Atorvastatin* 80 MG TAB PO SCH (16:55)
[2018-12-27] MEDS: Acetaminophen TAB* 325 MG PO PRN (20:16)
[2018-12-27] MEDS: Nicotine Patch Removal NOTE PATCH OFF SCH (20:17)
[2018-12-28] MEDS: Aspirin 81 mg CHEW TAB* 81 MG TAB.CHEW PO SCH (08:12)
[2018-12-28] MEDS: Ticagrelor* 90 MG TAB PO SCH (08:12)
[2018-12-28] MEDS: Nicotine PATCH 7 MG/24 HR* PATCH TRANSDERM SCH (08:12)
[2018-12-28] MEDS: Metoprolol Succinate XL TAB* 50 MG PO SCH (08:12)
[2018-12-28] MEDS ORDERED: Pantoprazole TAB * 40 MG TAB PO SCH (09:00)
[2018-12-28] MEDS ORDERED: Lisinopril TAB* 10 MG PO SCH (09:00)
[2018-12-28 12:45] VITALS: BP 100/72
--- NOTE | 2018-12-28 14:06 | DS ---
CC: Dr. Aazr. DISCHARGE SUMMARY: DATE OF ADMISSION: 12/25/18 DATE OF DISCHARGE: 12/28/18 PRIMARY CARE PHYSICIAN: Dr. Azar. DISCHARGE DIAGNOSES: 1. Anterior wall ST elevation infarct. 2. Tobacco use. 3. Dyslipidemia. 4. Elevated alkaline phosphatase. 5. Hyperglycemia. 6. Left ventricular systolic dysfunction, acute. CONDITION ON DISCHARGE: Stable. PROCEDURES: Cardiac cath, right radial access, aspiration thrombectomy, LAD, stent placement LAD 2.75 x 24, proximal 3.0 x 15 drug-eluting stents. DISCHARGE INSTRUCTIONS: ACTIVITY: No strenuous exertion for 1 week, to walk 30 minutes daily. To consider follow up with cardiac rehab. Wound check with Dr. Hassan next week as scheduled. To arrange follow up with Dr. Azar for followup of his hyperglycemia and elevated alkaline phosphatase as well as medical issues, smoking cessation. DISCHARGE MEDICATIONS: 1. Aspirin 81 mg daily. 2. Lipitor 80 mg daily. 3. Lisinopril 10 mg daily. 4. Metoprolol succinate 50 mg daily. 5. Nicotine patch 7 mg q.24 hours. 6. Nitroglycerin 0.4 sublingual p.r.n. 7. Brilinta 90 b.i.d. 8. Protonix 40 mg daily p.r.n. HISTORY: See H and P. LABS: His troponin peaked at 34.12, MB at 168.5, CPK at 1407. In the hospital , his blood sugar remained mildly elevated at 120, 121, A1c was 5.8. His presenting alkaline phosphatase was elevated at 136 with a repeat of 105, however, gamma-GTP was normal at 41. His calcium was normal. Hospital course: He presented with somewhat vague symptoms, initial ECG was not diagnostic of STEMI. He described upper chest pressure, repeat ECG revealed Ant injury, and he was brought emergently to the [facility] where the occluded LAD was revascularized. ECHO LVEF 35-40% w large anteroapical wall motion abnormality. Lab revealed an elevated alk phos with normal GTP. He has no history to suggest a bone disease. He was recommended to have this low level alkaline phosphatase elevation followed up as an outpatient. He was also advised that he fits the diagnostic criteria for prediabetes and to follow his blood sugars with Dr. Azar. He tolerated his medical regimen post revascularization. There were no wrist complications. He had no recurrence of chest pain, had no heart failure symptoms or arrhythmias. He is ambulatory, today he is a stable with a normal exam. EKG post revascularization shows typical post infarct evolution with T- wave inversion in the precordial leads. Hopefully, he will have significant recovery of LV function, he will have outpatient titration of his lisinopril and beta carlos as needed. [id number]/[facility] #: [id number] JAMES
== END 2018-12-28 13:13 | disposition home or self-care (01) | DRG 174 ==
LOC: ED 13:57 → CHICATH 14:23 → ICU 16:10 → MEDTELE 12-26 21:13
PROVIDERS: ADMIT Internal Medicine Cardiovascular Disease; ATTEND Internal Medicine Cardiovascular Disease
PROC: 02C03ZZ Extirpation of Matter from Coronary Artery, One Artery, Percutaneous Approach (ICD-10-PCS; 2018-12-25)
PROC: B2111ZZ Fluoroscopy of Multiple Coronary Arteries using Low Osmolar Contrast (ICD-10-PCS; 2018-12-25)
PROC: 027035Z Dilation of Coronary Artery, One Artery with Two Drug-eluting Intraluminal Devices, Percutaneous Approach (ICD-10-PCS; principal; 2018-12-25 14:00)
DX: I21.09 ST elevation (STEMI) myocardial infarction involving other coronary artery of anterior wall (principal); F17.200 Nicotine dependence, unspecified, uncomplicated; R73.9 Hyperglycemia, unspecified; I25.10 Atherosclerotic heart disease of native coronary artery without angina pectoris; R74.8 Abnormal levels of other serum enzymes; I25.5 Ischemic cardiomyopathy; E78.5 Hyperlipidemia, unspecified; Z82.49 Family history of ischemic heart disease and other diseases of the circulatory system; R00.1 Bradycardia, unspecified; I51.9 Heart disease, unspecified; Z79.82 Long term (current) use of aspirin; Z79.01 Long term (current) use of anticoagulants
CPT/HCPCS: 36415; 80048; 80053; 80061; 82550; 82553; 82977; 83036; 83721; 83874; 83880; 84075; 84132; 84443; 84484; 85027; 85347; 85379; 85610; 85730; 86850; 86900; 86901; 87641; 90686; 90732; 93005; 93308; 99156; 99157; 99285; A9270-GY; C1725; C1757; C1769; C1876; C1887; C9606-LD; J1327; J1644; J2250; J2405; J3010; J3480